=== PATIENT | female | born 1950 | race Caucasian/White ===

== ENCOUNTER 2016-12-01 08:56 | Inpatient (IN) | payer OTHER, MEDICARE ==
[~2016-12-01] VITALS: Ht 171.4 cm; Wt 100.2 kg
[2016-12-01] VITALS (11 sets, daily range): BP systolic 108–136; BP diastolic 49–77; PULSE 61–79; RESP 9–16; O2SAT 94–100
[~2016-12-01 08:56] MED LIST: Bupivacaine Liposome 1.3% 20 mL Inj INFILTRATE ONE; CeFAZolin Inj 2 GM in IV Premix 1 EACH IV ONE; IBUP200C11 PO; OMEP20CA11 PO; Vancomycin Inj 1,500 MG in 0.9% Sodium Chloride 500 ML IV ONE
[2016-12-01] MEDS ORDERED: CeFAZolin 2 Gm/50 mL D5W Duplex Bag IV ONE (09:07)
[2016-12-01] MEDS: Lactated Ringer's 1,000 ML IV SCH ×4 (10:22→15:40)
[2016-12-01] MEDS ORDERED: Bupivacaine Liposome 1.3% 20 mL Inj ONE (11:47)
[2016-12-01] MEDS ORDERED: Tranexamic Acid 100 mg/mL 10 mL Inj ONE (11:49)
[2016-12-01] MEDS ORDERED: Lactated Ringer's 1,000 ML IV ONE (12:00)
[2016-12-01] MEDS ORDERED: Lactated Ringer's 1,000 ML IV SCH (12:28)
[2016-12-01] MEDS ORDERED: Lactated Ringer's 500 ML IV PRN (12:28)
--- NOTE | 2016-12-01 12:28 | PCM.HPANE ---
Patient Data Surgeon Admitting Provider: Attending Provider:Alvin Miles MD Primary Care Physician:Agnieszka Other Provider:Sylwia Malloyingham Anesthesia Reason for Visit Right Knee Arthritis Ht/WT & BMI Height (Feet): 5 Height (Inches): 7.50 Weight (Kilograms): 100.200 Body Mass Index 34.00 Allergies Coded Allergies: No Known Allergies (Unverified , 11/23/16) Past Anesthesia History Anesthesia History: Denies:: Abnormal Airway, Anesthesia Reactions, Difficult Intubation, Fam Anesthesia Reaction, Malignant Hyperthermia Diabetes History Hx Diabetes?: No MRSA MRSA: No Medications Hypertension Medication: No Home Meds Incl Beta Joann: No Reported Medications Omeprazole 20 Mg Capsule.dr10 Mg PO DAILY Ref 0 11/23/16 Ibuprofen (Advil)200 Mg [id number] Mg PO DAILY 11/23/16 History History of ENT Problems?: Yes HEENT History: Positive for:: TMJ (wears nightguard with cpap) Denies:: Abnormal Airway Cataracts Difficult Intubation Dysphagia Glaucoma Hearing Problem Sinus Problem Denture Type: None Teeth Condition: Within Normal Limits Hx of Heart Problems?: No Cardiovascular History: Denies:: AICD Abdominal Aortic Aneurism Atrial Fibrillation Chest Pain Coronary Artery Disease Edema Heart Murmur Hypertension Irregular Heartbeat Pacemaker Peripheral Vascular Hx of Respiratory Problem?: Yes Respiratory History: Positive for:: Use of C-PAP Machine Denies:: Asthma COPD Dyspnea Emphysema Oxygen Administration Pneumonia Tuberculosis Use of Inhalers / NEBS Hx Neurologic Problems?: No Neurological History: Positive for:: Headaches Denies:: Alzheimer's Disease CVA Multiple Sclerosis Parkinson's Disease Seizures TIA Hx of GI Problems?: Yes Hx of Problems?: No Genitourinary History: Denies:: Kidney Stones Urinary Tract Infection Female Hx: Positive for:: Currently (tubal ) Denies:: Problems with Breasts? Skin History: Denies:: History Skin Disorders? Pressure Ulcers Hx Musculoskeletal Problems?: Yes Musculoskeletal History: Positive for:: Degenerative Joint Musculoskeletal Trauma (right knee current admission, left also sx ) Osteoarthritis Denies:: Back Injury (low back pain) Fibromyalgia Myasthenia Gravis Systemic Lupus Hx of Psycho/Social Problems?: No Psycho Social History: Denies:: Anxiety Hx Depression Hx Surgeries?: Yes (tubal, ) Hx Any Other Health Problems?: Yes Other History: Positive for:: Cancer (bcc- facial) Denies:: Thyroid Disease History Blood Transfusions: Positive for:: Accept Blood Products? Denies:: Blood Transfuse Reaction Blood Transfusions Hx Diabetes: No Hx Alcohol Use: NoHx Substance Use: NoHave You Smoked inLast 12 mo: No Stop/Bang S-Snoring: Do You Snore Loudly: No T-Tired: feel tired, fatigued: No O-Obsered: Observed not breath: No P-Blood Pressure: treated: No B- Body Mass Index > 35 kg/m2: No A- Age over 50: Yes N- Neck Large Circumference: No G- Gender Male: No NARGIS Total Score: 1 NARGIS Risk Assessment: Low Risk, <3 Yes Risk Assessment Category Category 1A: Patient has history of documented sleep apnea, and HAS NOT received any narcotic, sedative or anesthesia administration during this stay. Category 1B: Patient has history of documented sleep apnea, and HAS received any narcotic , sedative or anesthesia administration during this stay Category 2: Patient has SUSPECTED Obstructive Sleep Apnea, and HAS received any narcotic , sedative or anesthesia administration during this stay. Category 3: Patient has SUSPECTED Obstructive Sleep Apnea and HAS NOT received narcotic, sedative or anesthesia administration during this stay. Category 4: Outpatient in Procedural Areas with known sleep apnea or who screen positive for High Risk via the STOP/BANG questionnaire. Exam Exam Vital Signs Vital Signs Date Time Temp Pulse Resp B/P Pulse Ox O2 Delivery O2 Flow Rate FiO2 12/01/16 09:11 35.6 79 14 132/61 97 Room Air General Appearance: Alert, Oriented X3, Cooperative HEENT/AIRWAY: MP 2 Lungs: Clear to Auscultation Heart: Exam Unremarkable Plan Impression Patient chart reviewed, patient interviewed and anesthestic plan with risks, benefits, and alternatives discussed, and informed consent obtained. NPO per Anesth. Guidelines: Yes ASA Physical Status: ASA2 Mod Systemic Disease Anesthetic Plan: Regional Block, SAB Bene/Risks/Altern/Consents: Yes HP Complete Prior to Induction: Yes Paco Pool DO Dec 01, 2016 10:10
[2016-12-01] MEDS ORDERED: fentaNYL-PF 50 mCg/mL 2 mL Inj IVPUSH PRN (12:30)
[2016-12-01] MEDS ORDERED: Atropine 0.4 mg/mL Inj IVPUSH PRN (12:30)
[2016-12-01] MEDS ORDERED: Dexamethasone 4 mg/mL Inj IVPUSH PRN (12:30)
[2016-12-01] MEDS ORDERED: Phenylephrine 10,000 mCg/mL Inj IVPUSH PRN (12:30)
[2016-12-01] MEDS ORDERED: Bupivacaine-MPF 0.25%/EPI 30 mL Inj INFILTRATE ONE (12:30)
[2016-12-01] MEDS ORDERED: EPHEDrine Sulfate 50 mg/mL Inj IVPUSH PRN (12:30)
[2016-12-01] MEDS ORDERED: Labetalol 5 mg/mL 20 mL Inj IV PRN (12:30)
[2016-12-01] MEDS ORDERED: Gentamicin 40 mg/mL 2 mL Inj IRRIGATION ONE (12:30)
[2016-12-01] MEDS ORDERED: MetoCLOpramide 5 mg/mL 2 mL Inj IVPUSH PRN (12:30)
[2016-12-01] MEDS ORDERED: HYDROmorphone 1 mg/mL Inj IVPUSH PRN (12:30)
[2016-12-01] MEDS ORDERED: hydrALAZINE 20 mg/mL Inj IVPUSH PRN (12:30)
[2016-12-01] MEDS ORDERED: Ondansetron 2 mg/mL 2 mL Inj IVPUSH PRN (12:30)
--- NOTE | 2016-12-01 13:45 | OP ---
[address] [address] OPERATIVE REPORT PATIENT: GALE SINGH : 1950 MR#: [id number] ADMIT: 12/01/2016 JOB ID: [id number] DATE OF SURGERY: 12/01/2016 PREOPERATIVE DIAGNOSIS(ES): Advanced osteoarthritis, right knee. POSTOPERATIVE DIAGNOSIS(ES): Advanced osteoarthritis, right knee. PROCEDURE: Total knee arthroplasty. SURGEON: Alvin Miles M.D. PARTICLE BOARD SUPERVISOR: Sarah Eastman PA-C. [employer] required due to the complexity of the operation. INDICATIONS: This woman has had progressive and now disabling pain uncontrolled by conservative treatment methods. She requests and elects to proceed with a total knee replacement. She understands and accepts the potential for risks and complications, which includes but is not limited to infection, thromboembolic, neurovascular compromise, as well as implant failure. DESCRIPTION OF PROCEDURE: The patient was prepped and draped in the usual sterile fashion. An anteromedial approach was made. Dissection carried down. The patella subluxed laterally, cut transversely, sized to a 32. Drill holes placed. Patellar protection plate utilized. A 5 degree valgus cut made of the distal femur using the intramedullary guide. External rotation tool utilized and the femur sized to an 8 narrow femoral component. Chamfer block fixed in 3 degrees external rotation. Drill holes and chamfer cuts made. All bone fragments and meniscal tissue removed. The tibia was cut with the extramedullary tool, sized to a D tibial component. Fixed in appropriate position and rotation. Trial reduction was performed and a 10 mm polyethylene was chosen with excellent tracking, alignment, soft tissue tension. Pressurized lavage was then utilized followed by pressurized cementation of the components. Excess cement was removed during the curing process. The final construct was assembled. A deep Hemovac drain was left. The knee was lavaged with dilute Betadine solution. Deep closure with number #2 Quill deep followed by 2-0 Vicryl, 3-0, and a 4-0 intracuticular stitch. The patient tolerated the procedure well. There were no complications.
--- NOTE | 2016-12-01 13:55 | PCM.ANEP1 ---
Post Anesthesia PACU Phase 1 Assessment Vital Signs Vital Signs Date Time Temp Pulse Resp B/P Pulse Ox O2 Delivery O2 Flow Rate FiO2 12/01/16 09:11 35.6 79 14 132/61 97 Room Air Anesthetic Administered: SAB Level of Alertness: Awake, talking RAMIREZ's with Equal Strength: No (SAB) Pain: No Nausea or Vomiting: No CV Function & Hydration Stable: No Airway Device: Oxygen Delivery: Room Air Lungs: Clear to Auscultation Dermatome Level: T8 (Costal Margin) PACU Phase 2 Assessment Complications: No Follow up Care: N/A Patient Instructions Provided: N/A Paco Pool DO Dec 01, 2016 13:54
[2016-12-01] MEDS ORDERED: Propofol 10,000 mCg/mL 20 mL Inj ONE (14:32)
[2016-12-01] MEDS ORDERED: Ketamine 10 mg/mL 20 mL Inj ONE (14:32)
--- NOTE | 2016-12-01 15:11 | DRSVH ---
PROCEDURE: X-RAY RIGHT KNEE, ONE OR TWO VIEWS ([id number]) INDICATIONS: CHECK ALIGNMENT TECHNIQUE: 2 view(s) of the knee acquired. COMPARISON: None. FINDINGS: Bones: Patient is status post knee joint arthroplasty. Hardware components are in expected position s. Visualized bony structures are intact. Soft tissues: Overlying postoperative changes are noted. IMPRESSION: Expected postoperative appearance Dictated by: Harish Mclean M.D. on 12/01/2016 at 15:09 Approved by: Harish Mclean M.D. on 12/01/2016 at 15:10
[2016-12-01] MEDS ORDERED: oxyCODONE-Acetamin 5-325 mg Tablet PO PRN (15:45)
[2016-12-01] MEDS ORDERED: Alum-Mag Hydrox-Simeth 30 mL Suspension PO PRN (15:45)
[2016-12-01] MEDS ORDERED: LORazepam 0.5 mg Tablet PO PRN (15:45)
[2016-12-01] MEDS ORDERED: Magnesium Hydroxide 10 mL Oral Concentration PO PRN (15:45)
[2016-12-01] MEDS ORDERED: MetoCLOpramide 5 mg/mL 2 mL Inj IV PRN (15:45)
[2016-12-01] MEDS ORDERED: diphenhydrAMINE 25 mg Capsule PO PRN (15:45)
[2016-12-01] MEDS ORDERED: Sodium Biphos-Phos 133 mL Enema RECTAL PRN (15:45)
[2016-12-01] MEDS ORDERED: Ondansetron 8 mg ODT Tablet PO PRN (15:45)
[2016-12-01] MEDS ORDERED: Ondansetron 2 mg/mL 2 mL Inj IV PRN (15:45)
[2016-12-01] MEDS: Sodium Chloride LOK Flush 10 mL Syringe IV SCH (16:05)
--- NOTE | 2016-12-01 16:20 | NUR ---
Post op Transferred to [facility] room 1023 via bed at 14:30. Alert and oriented, denies pain and nausea. Sats mid 90s on 2L nc. OYSTER UNLOADER in place for sleep apnea. Reports some 'pins and needles' feeling to bilat feet and able to move feet and toes. Gunnar wrap to R knee CDI.
[2016-12-01] MEDS: CeFAZolin 2 Gm/50 mL D5W Premix IV SCH (16:49)
[2016-12-01] MEDS: Ketorolac 15 mg/mL Inj IV SCH (19:52)
[2016-12-01] MEDS: hydrOXYzine Pamoate 25 mg Capsule PO PRN (19:53)
[2016-12-01] MEDS ORDERED: Vancomycin 1,000 mg/200 mL NS IV ONE (20:00)
[2016-12-02] MEDS: hydrOXYzine Pamoate 25 mg Capsule PO PRN ×4 (00:05→18:45)
[2016-12-02 00:13] VITALS: BP 104/53; PULSE 70; RESP 18; O2SAT 99
[2016-12-02] MEDS: Sodium Chloride LOK Flush 10 mL Syringe IV SCH ×3 (00:30→16:30)
[2016-12-02] MEDS: Ketorolac 15 mg/mL Inj IV SCH ×2 (01:44→08:00)
[2016-12-02] MEDS: CeFAZolin 2 Gm/50 mL D5W Premix IV SCH (01:45)
--- NOTE | 2016-12-02 03:20 | NUR ---
Pain Management Patient able to use bedside commode. Tolerated well. Pain regimen effective with occasional break through. Pain managed with small dose of PRN narcotic. Bed in lowest position, call light within reach, intentional rounding. Care continues.
[2016-12-02] MEDS: Lactated Ringer's 1,000 ML IV SCH ×2 (05:37→16:40)
[2016-12-02 06:05] LABS: BASOPHILS % (AUTO) 0.4 % (0-3); EOSINOPHILS % (AUTO) 1.2 % (0-5); MONOCYTES % (AUTO) 16.9 % (4-12); Mean Corpuscular Hemoglobin 29.4 pg (27.0-35.0); Mean Corpuscular Volume 88.8 fL (81-100); NEUTROPHILS % (AUTO) 61.3 % (40-74); Platelet Count 206 bil/L (150-400)
[2016-12-02 06:15] VITALS: BP 101/67; PULSE 66; RESP 18; O2SAT 99
[2016-12-02] MEDS ORDERED: Vancomycin Inj 1,500 MG in 0.9% Sodium Chloride 500 ML IV ONE (09:00)
[2016-12-02] MEDS ORDERED: CeFAZolin Inj 2 GM in IV Premix 1 EACH IV ONE (09:00)
[2016-12-02] MEDS ORDERED: Bupivacaine Liposome 1.3% 20 mL Inj INFILTRATE ONE (09:00)
[2016-12-02 09:44] VITALS: BP 93/62; PULSE 78; RESP 16; O2SAT 87
[2016-12-02 09:46] VITALS: O2SAT 96
--- NOTE | 2016-12-02 12:21 | NUR ---
Calf pain/hemovac Pt complains of sharp calf pain in operative leg, increased with passive flexion of foot. Ortho NELLIE paged, aware. No new orders at this time. Hemovac became disconnected from tubing while pt transferred to [facility]. Removed intact.
[2016-12-02 12:24] VITALS: BP 126/71; PULSE 75; RESP 18; O2SAT 97
--- NOTE | 2016-12-02 14:24 | PCM.PNORTH ---
Subjective Date of Service: Dec 02, 2016 Visit Information: Reason for Visit Right Knee Arthritis Surgery/Surgery Date Post-Op Day # 1 Date of Admission: Dec 01, 2016 at 14:31 Hospital Day # Subjective Patient was very sleepy and stated her knee hurt. She did not want to answer any other questions at this time. When I returned later, she complained of pain in the back of her knee and proximal calf. She states it began after physical therapy and hurts when people move her foot. She is able to move her foot and knee with little discomfort. Postop General: No Shortness of Breath, No Chest Pain Pain Management: PO Objective Exam Objective Patient laying in bed. She does not want me to turn on light. She does not respond to questioning and states she is tired. She does respond to verbal cues and follows directions Vital Signs and I/O Vital Sign - Last Date Time Temp Pulse Resp B/P Pulse Ox O2 Delivery O2 Flow Rate FiO2 12/02/16 09:46 96 Nasal Cannula 2.00 12/02/16 09:44 36.7 78 16 93/62 Intake and Output 12/01/16 12/01/16 12/02/16 Cumulative From/Thru 15:00 23:00 07:00 11/23/16 11:02 - 12/02/16 06:36 Intake Total 2260 ml 1690 ml 3950 ml Output Total 20 ml 1025 ml 1045 ml Balance 2240 ml 665 ml 2905 ml Intake Oral 400 ml 400 ml IV Total 2260 ml 1290 ml 3550 ml Output Urine Total 900 ml 900 ml Drainage Total 125 ml 125 ml Estimated Blood Loss 20 ml 20 ml # Bowel Movements 0 0 Lab & Micro Results Laboratory Tests Test 12/02/16 05:30 White Blood Count 9.4th/mm3 (3.8-10.1) Red Blood Count 4.46mil/mm3 (3.90-5.20) Hemoglobin 13.1g/dL (12.0-15.6) Hematocrit 39.6% (35.0-46.0) Mean Corpuscular Volume 88.8fL (81-100) Mean Corpuscular Hemoglobin 29.4pg (27.0-35.0) Mean Corpuscular Hemoglobin Concent 33.1% (32.0-37.0) Red Cell Distribution Width 14.1% (12.3-15.4) Platelet Count 206bil/L (150-400) Neutrophils (%) (Auto) 61.3% (40-74) Lymphocytes (%) (Auto) 20.0% (14-46) Monocytes (%) (Auto) 16.9% (4-12) Eosinophils (%) (Auto) 1.2% (0-5) Basophils (%) (Auto) 0.4% (0-3) Result Diagram: 12/02/16 0530 General Appearance: Alert, Oriented X3, Cooperative, No Acute Distress Extremities: Distal Pulses Palpable, No Compartment Syndrom Noted, Thigh & Calf Soft/Nontender (Calf is soft, nontender and active dorsiflexion causes no discomfort. Mild discomfort with passive dorsiflexion however pain is described as in the back of the knee moreso than the body of the calf. Unlikely for DVT but will continue to monitor.) Postop Sensory Motor: Distal Motor Intact, Movement in Toes, NVI Distally SURGICAL WOUND : Wound Location/Description Arlene-operative dressing c/d/i Drain Location Body Site: Knee Wound Drainage Type: Hemovac Activity: Ambulate with PT (WBAT c FWW) Assessment & Plan Impression POD#1 right total knee arthroplasty Problems: Plan Will continue to monitor calf pain. Weightbearing: Weightbearing as tolerated with a front wheeled walker DVT prophylaxis: Aspirin 81 mg twice a day 6 weeks Physical therapy for transfers, progressive ambulation, strengthening Wound care: Perioperative dressing will be changed to an island dressing tomorrow. Analgesia: Oral pain management preferred Discharge plan: Discharge home in 1-2 days. Start outpatient physical therapy next week. Follow-up plan: In 2 weeks at [facility] with NELLIE for wound check and at [address] Miles with x-rays Sarah Eastman PA-C Dec 02, 2016 11:19
[2016-12-02] MEDS: HYDROcodone-APAP 5-325 mg Tablet PO PRN ×2 (17:37→19:57)
--- NOTE | 2016-12-02 18:27 | NUR ---
Pain Complains of pain 5-8/10 while using 5mg oxycodone, Tylenol and Vistaril. However, pt was sleeping very soundly throughout shift and repeatedly stated that she felt "groggy" and "fuzzy." Unable to work with PT r/t sedation and pain, although she has been up to [facility] numerous times with nursing. Was unable to keep eyes open during conversation with RN while discussing pain management. Discussed switching to Vicodin, pt and daughter agreeable. After Vicodin, pain was reported up to 10/10, moaning. Pt was able to eat dinner and laugh with visitors at this time. 2mg Morphine given for breakthrough pain, SYSTEMS MANAGER in place. RR 16-18.
[2016-12-02 20:15] VITALS: BP 133/79; PULSE 93; RESP 20; O2SAT 94
[2016-12-03 00:25] VITALS: BP 108/70; PULSE 85; RESP 18; O2SAT 95
[2016-12-03] MEDS: HYDROcodone-APAP 5-325 mg Tablet PO PRN ×4 (00:25→23:34)
[2016-12-03] MEDS: Sodium Chloride LOK Flush 10 mL Syringe IV SCH ×3 (00:53→17:09)
--- NOTE | 2016-12-03 04:37 | NUR ---
Pain Patient is alert and oriented. Adjusted pain medications, as previous methods did not fully control pain. Patient reports better pain control. Patient ambulated to restroom, tolerated well. Bed down, rails up, call light in reach. Care continues.
[2016-12-03 04:55] VITALS: BP 110/73; PULSE 72; RESP 16; O2SAT 96
[2016-12-03] MEDS: Lactated Ringer's 1,000 ML IV SCH ×2 (05:10→17:09)
[2016-12-03] MEDS: hydrOXYzine Pamoate 25 mg Capsule PO PRN ×3 (08:40→23:34)
--- NOTE | 2016-12-03 10:13 | PCM.PNORTH ---
Subjective Date of Service: Dec 03, 2016 Visit Information: Reason for Visit Right Knee Arthritis Surgery/Surgery Date Post-Op Day # 2 Date of Admission: Dec 01, 2016 at 14:31 Hospital Day # Subjective Patient states she does recognize me from her in office pre-operative evaluation or the multiple times I visited her yesterday. She states she was unable to do physical therapy yesterday but does not remember why. She states she has struggled with pain control since her surgery. She states it is improved to a tolerable degree today. I reminded her that she needs to participate as much as possible with therapy so she can safely go home. Postop General: No Shortness of Breath, No Chest Pain Pain Management: PO Objective Exam Objective Patient laying in bed Vital Signs and I/O Vital Sign - Last Date Time Temp Pulse Resp B/P Pulse Ox O2 Delivery O2 Flow Rate FiO2 12/03/16 08:44 Supplement Oxygen 12/03/16 04:55 36.5 72 16 110/73 96 12/02/16 09:46 2.00 Intake and Output 12/02/16 12/02/16 12/03/16 Cumulative From/Thru 15:00 23:00 07:00 11/23/16 11:02 - 12/02/16 19:18 Intake Total 936 ml 4886 ml Output Total 410 ml 1455 ml Balance 526 ml 3431 ml Intake Oral 936 ml 1336 ml IV Total 3550 ml Output Urine Total 350 ml 1250 ml Drainage Total 60 ml 185 ml Estimated Blood Loss 20 ml # Bowel Movements 0 0 Result Diagram: 12/02/16 0530 General Appearance: Alert, Oriented X3, Cooperative, No Acute Distress Extremities: Distal Pulses Palpable, No Compartment Syndrom Noted, Tenderness/ Swelling Noted Postop Sensory Motor: Distal Motor Intact, Movement in Toes, Distal Sensation Intact, NVI Distally SURGICAL WOUND : Wound Location/Description Perioperative bulky dressing changed to an island dressing today. Drain Location Body Site: Knee Incision General Appearance: Well Approximated, Incision Healing, Area of Swelling Dressing & Drainage Status: Changed Wound Drainage Type: Hemovac Activity: Ambulate with PT (WBAT c FWW) Assessment & Plan Impression POD#2 right total knee arthroplasty Problems: Plan Not complaining of calf pain today. Weightbearing: Weightbearing as tolerated with a front wheeled walker DVT prophylaxis: Aspirin 81 mg twice a day 6 weeks Physical therapy for transfers, progressive ambulation, strengthening Wound care: Dressings changed today to an island dressing. Change/reinforce as needed. Patient has compression stockings with her, please apply these bilaterally. Analgesia: Oral pain management preferred Discharge plan: Discharge home in tomorrow. Start outpatient physical therapy next week. Follow-up plan: In 2 weeks at [facility] with PA for wound check and at [address] Miles with x-rays Sarah Eastman PA-C Dec 03, 2016 10:11
--- NOTE | 2016-12-03 14:26 | NUR ---
Social Work-initial assessment/readiness for discharge: Data:See initial assessment. Pt is a 66 y/o female who was admitted on 12/01/16 for right knee arthritis per H&P. Pt's insurance is [employer] and PCP is Dr. Darian MD. EMR Reviewed. Pt's readmission score is 0. SW met with pt and two daughters at bedside, SW role explained. Pt is alert and oriented x3. Pt resides at home with her in [place] where she remains independent with ADLS. Pt does not use any DME and drives. Pt has DME for home use post surgery. Pt has no HH or SNF history. Pt has no remote computer terminal operator care insurance or VA benefits. SW discussed DPOA/ advanced directive, pt confirms she has completed this, SW encouraged a copy to be brought in. No concerns noted in morning rounds regarding pt's capacity for self care, per RN or . PT has cleared pt for home with outpt PT services. Pt confirms she already has her outpt services set up. Pt's to provide transport home. SW provided pt with discharge planning checklist and encouraged pt to call with any questions, phone number provided. No anticipated discharge needs. SW will continue to follow if needs arise. Assessment:Pt who is independent at baseline. Plan:Pt to discharge home when medically stable via POV. No anticipated discharge needs. SW will continue to follow if needs arise. TUNDE Alcocer Addendum: 12/03/16 at 1429 by PAPITO GOFF SS Amended: Links added.
--- NOTE | 2016-12-03 18:34 | NUR ---
PAIN/PT Patient's pain fairly well controlled with 5mg Oxicodione q3 Hr and Vistaril q4. Early in shift patient meet her 24hr Tylenol limit. Patient worked hard with PT x2, ambulating with walker 60ft.
[2016-12-03 20:41] VITALS: BP 134/79; PULSE 93; RESP 16; O2SAT 94
--- NOTE | 2016-12-03 23:41 | NUR ---
Report received from SOCORRO Rushing and assumed care for remaining part of NOC shift. Patient is stable, pain managed with PRN medications, and able to make needs known. Care continues
[2016-12-04] MEDS: HYDROcodone-APAP 5-325 mg Tablet PO PRN ×2 (04:15→09:36)
[2016-12-04] MEDS: Sodium Chloride LOK Flush 10 mL Syringe IV SCH ×2 (04:15→09:33)
[2016-12-04] MEDS: hydrOXYzine Pamoate 25 mg Capsule PO PRN (04:15)
[2016-12-04 04:22] VITALS: BP 120/75; PULSE 73; RESP 16; O2SAT 99
[2016-12-04] MEDS: Lactated Ringer's 1,000 ML IV SCH (06:10)
--- NOTE | 2016-12-04 09:57 | PCM.PNORTH ---
Subjective Date of Service: Dec 04, 2016 Visit Information: Reason for Visit Right Knee Arthritis Surgery/Surgery Date Post-Op Day # 3 Date of Admission: Dec 01, 2016 at 14:31 Hospital Day # Subjective Patient states she is having less pain today. She seems to remember more today than yesterday and states she recalls who I am. She also states she did physical therapy the day before but did not do stairs. She is worried about stairs as she has two to get into her home and +12 to get to her bedroom.denies calf pain. Postop General: No Shortness of Breath, No Chest Pain Pain Management: PO Objective Exam Objective Patient laying in bed Vital Signs and I/O Vital Sign - Last Date Time Temp Pulse Resp B/P Pulse Ox O2 Delivery O2 Flow Rate FiO2 12/04/16 04:22 36.3 73 16 120/75 99 Room Air 12/02/16 09:46 2.00 Intake and Output 12/03/16 12/03/16 12/04/16 Cumulative From/Thru 15:00 23:00 07:00 11/23/16 11:02 - 12/04/16 05:15 Intake Total 800 ml 600 ml 600 ml 6886 ml Output Total 1000 ml 1600 ml 700 ml 4755 ml Balance -200 ml -1000 ml -100 ml 2131 ml Intake Oral 800 ml 600 ml 600 ml 3336 ml IV Total 3550 ml Output Urine Total 1000 ml 1600 ml 700 ml 4550 ml Drainage Total 185 ml Estimated Blood Loss 20 ml # Voids 3 1 2 6 # Bowel Movements 0 0 0 Result Diagram: 12/02/16 0530 General Appearance: Alert, Oriented X3, Cooperative, No Acute Distress Extremities: Distal Pulses Palpable, No Compartment Syndrom Noted Postop Sensory Motor: Distal Motor Intact, Movement in Toes, Distal Sensation Intact, NVI Distally SURGICAL WOUND : Wound Location/Description Island dressing c/d/i, BERTHA thigh high compression stockings in place Drain Location Body Site: Head Incision General Appearance: Well Approximated, Incision Healing, Area of Swelling Dressing & Drainage Status: Intact Wound Drainage Type: Hemovac Activity: Ambulate with PT (WBAT c FWW) Assessment & Plan Impression POD#3 right total knee arthroplasty Problems: Plan Weightbearing: Weightbearing as tolerated with a front wheeled walker DVT prophylaxis: Aspirin 81 mg twice a day 6 weeks Wound care: Dressings changed today to an island dressing. Change/reinforce as needed. Patient has compression stockings with her, please apply these bilaterally. Analgesia: Percocet (oxycodone/acetaminophen) for breakthrough pain. Vistaril ( hydroxyzine pamoate) for spasms/discomfort. Discharge plan: Discharge home today Start outpatient physical therapy next week. Follow-up plan: In 2 weeks at [facility] with NELLIE for wound check and at [address] Miles with x-rays Sarah Eastman PA-C Dec 04, 2016 09:56
--- NOTE | 2016-12-04 10:00 | PCM.DIORTH ---
Ortho Discharge Instruction Date of Service: Dec 04, 2016 Dates of Hospitalization Date of Hospital Admission Dec 01, 2016 at 14:31 Providers Admitting Physician: Alvin Miles MD Primary Care Physician: Agineszka Attending Physician: Alvin Miles MD Diet Discharge Diet: No restrictions Activity Discharge Activity-General: Be up and about, Elevate & ice extremity, Ice incision 3-5 time/day for 20min Right Lower Extremity: Weight Bearing as tolerated Discharge Assist Device: Front Wheeled Walker Dressing and Incisional Care Discharge Hygiene: May shower (with dressing covered with saran wrap and/or plastic bag) Additional Instructions Discharge Instructions Weightbearing: Weightbearing as tolerated with a front wheeled walker DVT prophylaxis: Aspirin 81 mg twice a day 6 weeks Wound care: Keep dressing intact as necessary, may remove if desired. Keep thigh high compression stockings in place bilaterally until follow up. Shower instructions: May shower today with dressings covered with saran wrap and /or plastic bag. Do not get dressing wet. Do not soak or submerge incision. Analgesia: Percocet (oxycodone/acetaminophen) for breakthrough pain. Vistaril ( hydroxyzine pamoate) for spasms/discomfort. Follow-up plan: In 2 weeks at [facility] with NELLIE for wound check and at [address] Miles with x-rays Sarah Eastman PA-C Dec 04, 2016 10:00
[2016-12-04] MEDS ORDERED: HYDR-3797 PO (10:01)
[2016-12-04] MEDS ORDERED: ASPI81TA3 PO (10:01)
[2016-12-04] MEDS ORDERED: OXYC1TAB24 PO (10:01)
--- NOTE | 2016-12-04 10:39 | NUR ---
Social Work-Discharge Data: EMR reviewed. Pt is on day 3 of hospitalization for right TKA. Pt discussed with Ortho provider, pt to d/c today. Pt's to provide transport home. No discharge needs. Assessment:Pt who is independent at baseline. Plan:Pt to discharge home, to transport via POV. No discharge needs. TUNDE Bojorquez
[2016-12-04 11:56] VITALS: BP 112/64; PULSE 78; RESP 18; O2SAT 91
--- NOTE | 2016-12-04 12:15 | NUR ---
Ambulate Pt able to ambulate to the bathroom with walker, tolerated well, able to have BM. Pt back in bed resting carefully. Care continues.
--- NOTE | 2016-12-04 16:54 | NUR ---
Discharge Pt discharged at approximately 1645 to home with . Pt given educational material for total knee replacement, Oxycodone and Hydroxizine. Next dose to be taken clearly written and dated, pt educated on increasing roughage, fruits and vegetables, followup appt scheduled per pt. IV DC'd with catheter intact. Pt acknowledged and understood all information. Pt left with all personal belongings. Escorted by CLIENT MANAGER LARGE LAW to the door via wheelchair.
--- NOTE | 2016-12-06 10:00 | PCM.DC.ORT ---
Discharge Summary Date of Service: Dec 06, 2016 Date of Hospital Admission: Dec 01, 2016 at 14:31 Date of Surgery: Dec 01, 2016 Date of Discharge: Dec 04, 2016 Reason for Hospitalization: Right knee osteoarthritis Procedures Performed: Right total knee arthroplasty Hospital Course: Patient was admitted to the hospital for the above mentioned procedure on . Patient had pre-op antibiotics of Ancef and Vancomycin. Patient tolerated procedure well and was transferred to the [facility] in a stable condition. Pain control was Toradol, Percocet and Vistaril. DVT prophylaxis is Aspirin 81mg BID x 6 weeks and SCDs. Patient performed adequately with PT and was discharged home on POD#3 Discharge Instructions: Weightbearing: Weightbearing as tolerated with a front wheeled walker DVT prophylaxis: Aspirin 81 mg twice a day 6 weeks Wound care: Keep dressing intact as necessary, may remove if desired. Keep thigh high compression stockings in place bilaterally until follow up. Shower instructions: May shower today with dressings covered with saran wrap and /or plastic bag. Do not get dressing wet. Do not soak or submerge incision. Analgesia: Percocet (oxycodone/acetaminophen) for breakthrough pain. Vistaril ( hydroxyzine pamoate) for spasms/discomfort. Follow-up plan: In 2 weeks at [facility] with NELLIE for wound check and at [address] Miles with x-rays Aspirin Chew (Aspirin Chew) 81 Mg Chew 81 MG PO BID Hydroxyzine Pamoate (HydrOXYzine Pamoate) 25 Mg Capsule 25 MG PO Q4H PRN PRN For Restlessness Ibuprofen (Advil) 200 Mg Capsule 400 MG PO DAILY Omeprazole (Omeprazole) 20 Mg Capsule. 10 MG PO DAILY oxyCODONE-Acetaminophen 5-325 mg (oxyCODONE-Acetaminophen 5-325 mg) 1 Each Tablet 1-2 TAB PO Q3H PRN PRN For Severe Pain Sarah Eastman PA-C Dec 06, 2016 10:00
== END 2016-12-04 16:33 | disposition home or self-care (01) | DRG 470 ==
LOC: SAS 08:56 → OSC 14:31
PROVIDERS: ADMIT Orthopaedic Surgery; ATTEND Orthopaedic Surgery
PROC: 0SRC0J9 Replacement of Right Knee Joint with Synthetic Substitute, Cemented, Open Approach (ICD-10-PCS; principal; 2016-12-01 11:00)
DX: M17.11 Unilateral primary osteoarthritis, right knee (principal)